=== PATIENT | female | born 1950 | race Caucasian/White ===

== ENCOUNTER → 2016-08-08 | Outpatient (CLI) | payer MEDICARE ==
--- NOTE | 2016-08-08 19:44 | BD ---
EXAMINATION TYPE: MG DEXA axial skeleton. DATE OF EXAM: 08/08/2016 4:19 PM COMPARISON: NONE CLINICAL HISTORY: post menopausal female Height: 5'2 1/2 Weight: 124 FRAX RISK QUESTIONS: Alcohol (3 or more units per day): no Family History (Parent hip fracture): no Glucocorticoids (More than 3mos): no (Ex: prednisone, prednisolone, methylprednisolone, dexamethasone, and hydrocortisone). History of Fracture in Adulthood: no Secondary Osteoporosis: 1. Type 1 Diabetes: no 2. Hyperthyroidism: no 3. Menopause before 45: no 4. Malnutrition: no 5. Chronic liver disease: no Rheumatoid Arthritis: no Current Tobacco Use: no RISK FACTORS HISTORY OF: Diet low in dairy products/other sources of calcium: Postmenopausal woman: MEDICATIONS: Additional Medications: blood pressure, cholesterol Additional History: EXAM MEASUREMENTS: Bone mineral densitometry was performed using the [employer] System. Bone mineral density as measured about the Lumbar spine is: ----- L1-L4(G/cm2): 1.113 T Score Values are as follows: ----- L2: -1.4 ----- L3: -0.3 ----- L4: 0.4 ----- L1-L4: 0.4 Bone mineral density about the R hip (g/cm2): 0.846 Bone mineral density about the L hip (g/cm2): 0.828 T Score values are as follows: -----R Neck: -1.4 -----L Neck: -1.5 -----R Total: -0.3 -----L Total: -0.3 IMPRESSION: Osteopenia (T Score between -2.5 and -1 as noted by T score values: In the low back and bilateral hip s. There is slightly increased risk of fracture and the patient may be considered for treatment. Re-S creen 2-5 years. NOTE: T-SCORE=SD OF THE YOUNG ADULT MEAN.
--- NOTE | 2016-08-09 12:50 | MM ---
Reason for exam: screening (asymptomatic). Last mammogram was performed 1 year and 2 months ago. History: Patient is postmenopausal. Reductions of both breasts, 2000. Took estrogen for 4 years beginning at age 45. Physical Findings: A clinical breast exam by your physician is recommended on an annual basis and results should be correlated with mammographic findings. MG 3D Screening Mammo W/Cad Bilateral CC and MLO view(s) were taken. Prior study comparison: June 14, 2015, bilateral MG screening mammo w CAD. January 07, 2014, bilateral MG screening mammo w CAD. December 04, 2012, CAD bilateral diagnostic mammogram. The breast tissue is heterogeneously dense. This may lower the sensitivity of mammography. Finding: There are typically benign round, difuse, grouped calcifications in both breasts. There is no discrete abnormality. ASSESSMENT: Benign, BI-RAD 2 RECOMMENDATION: Routine screening mammogram of both breasts in 1 year.
== END | disposition home or self-care (01) ==
LOC: RADMAMWWP 15:31
PROVIDERS: ATTEND Internal Medicine
DX: Z12.31 Encounter for screening mammogram for malignant neoplasm of breast (principal); M85.851 Other specified disorders of bone density and structure, right thigh; M85.852 Other specified disorders of bone density and structure, left thigh; M85.88 Other specified disorders of bone density and structure, other site; Z78.0 Asymptomatic menopausal state
CPT/HCPCS: 77080; 77063; G0202

== ENCOUNTER → 2018-01-23 | Outpatient (CLI) | payer MEDICARE ==
[2018-01-23 11:20] VITALS: BP 139/81; PULSE 64; TEMP 98.2; BMI 23.6
--- NOTE | 2018-01-23 12:59 | P.HPOB ---
History of Present Illness H&P Date: 01/23/18 Chief Complaint: The patient is here for her routine gynecologic exam and mammogram. This is a 67-year-old with an LMP of 2004. The patient is here to establish with this office. She states it is been about 2 years since her last pelvic exam. She is complaining of some vulvar pruritus on and off for months. She denies any vaginal discharge. She denies any postmenopausal bleeding. Review of Systems Weight has been stable. She denies respiratory or cardiac problems. G.I.: occasional loose stool in the morning which she wonders if it's related to her cholesterol medication. She denies maltreatment or problems with falling. : she denies any significant problems with urinary leakage. 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 She did use HRT for approximately 4 years after her menopausal change. History of Any Multi-Drug Resistant Organisms: None Reported Past Surgical History: Breast Surgery (Breast reduction), Hernia Repair ( Inguinal) Additional Past Surgical History / Comment(s): Colonoscopy 2018(4th) Past Psychological History: No Psychological Hx Reported Smoking Status: Never smoker Past Alcohol Use History: Heavy (2 per week), Occasional Past Drug Use History: None Reported Additional History: The patient has been since 1971 and is not sexually active. She is a retired schoolteacher. - Past Family History Father Family Medical History: CVA/TIA, Hyperlipidemia Mother Family Medical History: Cancer (Colon cancer) Additional Family Medical History / Comment(s): Maternal aunt had ovarian cancer. Brother(s) Family Medical History: CVA/TIA, Hyperlipidemia Medications and Allergies Home Medications Medication Instructions Recorded Confirmed Type Atorvastatin [Lipitor] 20 mg PO DAILY 01/23/18 01/23/18 History Biotin 10,000 mcg PO DAILY 01/23/18 01/23/18 History Bisoprolol-Hctz 2.5-6.25 mg [Ziac 2.5 - 625 PO DAILY 01/23/18 History 2.5-6.25 MG] Ubidecarenone [Co Q-10] 200 mg PO DAILY 01/23/18 01/23/18 History Allergies Allergy/AdvReac Type Severity Reaction Status Date / Time No Known Allergies Allergy Unverified 01/23/18 11:15 Exam Vital Signs Temp Pulse BP 01/23/18 11:15 98.2 F 64 139/81 Intake and Output 01/22/18 01/23/18 01/23/18 22:59 06:59 14:59 Other: Weight 58.513 kg Height 5'2", weight 129 pounds, BMI 23.6. This is a well-developed well-nourished white female who is alert and oriented times 3 in no acute distress. HEENT: Within normal limits. NECK: Supple without mass or thyromegaly. CHEST AND LUNGS: Clear to auscultation. HEART: Regular rate and rhythm. BREASTS: Are without mass or discharge. Breasts are consistent with previous breast reduction surgery. AXILLARY EXAM: Negative for adenopathy. BACK: Negative for CVA tenderness. ABDOMEN: Soft, nontender, without palpable masses. PELVIC EXAM: external genitalia reveals mild generalized erythema with slight perineal pallor. There is also mild to moderate generalized atrophy of the external genitalia. Cervix and vagina appear normal with mild to moderate atrophy. There is no unusual discharge. There is no evidence of prolapse. The uterus is midposition, nongravid size and nontender. There are no palpable adnexal masses or tenderness. RECTAL EXAM: rectovaginal exam is negative for mass or tenderness and is negative for occult blood. EXTREMITIES: Nontender. IMPRESSION: 1. 67-year-old menopausal female with mild to moderate genital atrophy and several month history of vulvar pruritus. 2. Nonspecific vulvitis. Possible early lichen sclerosis. 3. History of osteopenia PLAN: 1. Pap smear was performed. 2. Self breast awareness was discussed with the patient. 3. Screening mammogram will be done today. 4. Kenalog 0.1% cream BID prn. After the 1st week, she will wean off of this. She'll also use small amount of petroleum jelly to the external genitalia and perineum as a protective clear once a day. This will be applied at different times than the prescription cream. The Kenalog prescription will be sent to [facility] pharmacy in [place]. 5. If her symptoms are not improving, she will return in one month for reevaluation. 6. Osteoporosis prevention was discussed. We will plan on repeating tonicity testing in one year. 7. She'll also return in one year and PRN. 8. She did receive her flu shot this fall.
== END | disposition home or self-care (01) ==
LOC: WWCWWP 10:56
PROVIDERS: ATTEND Obstetrics & Gynecology
DX: Z53.9 Procedure and treatment not carried out, unspecified reason (principal)

== ENCOUNTER → 2018-01-23 | Outpatient (CLI) | payer MEDICARE ==
--- NOTE | 2018-01-25 09:52 | MM ---
Reason for exam: screening (asymptomatic). Last mammogram was performed 1 year and 5 months ago. History: Patient is postmenopausal. Reductions of both breasts, 2000. Took estrogen for 4 years beginning at age 45. Physical Findings: A clinical breast exam by your physician is recommended on an annual basis and results should be correlated with mammographic findings. MG 3D Screening Mammo W/Cad Bilateral CC and MLO view(s) were taken. Prior study comparison: August 08, 2016, bilateral MG 3d screening mammo w/cad. June 14, 2015, bilateral MG screening mammo w CAD. The breast tissue is heterogeneously dense. This may lower the sensitivity of mammography. No significant changes when compared with prior studies. ASSESSMENT: Benign, BI-RAD 2 RECOMMENDATION: Routine screening mammogram of both breasts in 1 year.
== END | disposition home or self-care (01) ==
LOC: RADMAMWWP 12:25
PROVIDERS: ATTEND Internal Medicine
DX: Z12.31 Encounter for screening mammogram for malignant neoplasm of breast (principal)
CPT/HCPCS: 77063; 77067

== ENCOUNTER → 2018-03-05 | Outpatient (CLI) | payer MEDICARE ==
--- NOTE | 2018-03-06 11:04 | ECHOF ---
Referral Reason:R00.2 Palpitations; I10 Hypertension MEASUREMENTS -------- HEIGHT: 157.5 cm WEIGHT: 56.7 kg BP: RVIDd: 2.4 cm (< 3.3) IVSd: 1.1 cm (0.6 - 1.1) LVIDd: 3.1 cm (3.9 - 5.3) LVPWd: 1.2 cm (0.6 - 1.1) IVSs: 1.6 cm LVIDs: 1.5 cm LVPWs: 1.7 cm LAESV Index (A-L): 22.12 ml/m Ao Diam: 2.7 cm (2.0 - 3.7) AV Cusp: 1.4 cm (1.5 - 2.6) LA Diam: 3.0 cm (2.7 - 3.8) MV EXCURSION: 11.844 mm (> 18.000) MV EF SLOPE: 49 mm/s (70 - 150) EPSS: 0.3 cm MV E Alex: 0.48 m/s MV DecT: 311 ms MV A Alex: 0.89 m/s MV E/A Ratio: 0.54 RAP: 5.00 mmHg RVSP: 22.38 mmHg FINDINGS -------- Sinus rhythm. This was a technically good study. The left ventricular size is normal. There is mild concentric left ventricular hypertrophy. Overa ll left ventricular systolic function is normal with, an EF between 55 - 60 %. The right ventricle is normal in size and function. The left atrium is normal in size. The right atrium is normal in size. The aortic valve is trileaflet, and appears structurally normal. No aortic stenosis or regurgitation. The mitral valve is normal. There is trace mitral regurgitation. Trace tricuspid regurgitation present. Right ventricular systolic pressure is normal at < 35 mmHg. The right ventricular systolic pressure, as measured by Doppler, is 22.38mmHg. There is no pulmonic regurgitation present. The aortic root size is normal. Normal inferior vena cava with normal inspiratory collapse consistent with estimated right atrial pre ssure of 5 mmHg. There is no pericardial effusion. CONCLUSIONS -------- 1. Sinus rhythm. 2. This was a technically good study. 3. The left ventricular size is normal. 4. There is mild concentric left ventricular hypertrophy. 5. Overall left ventricular systolic function is normal with, an EF between 55 - 60 %. 6. The left atrium is normal in size. 7. The aortic valve is trileaflet, and appears structurally normal. No aortic stenosis or regurgitati on. 8. There is trace mitral regurgitation. 9. Trace tricuspid regurgitation present. 10. Right ventricular systolic pressure is normal at < 35 mmHg. 11. There is no pulmonic regurgitation present. 12. The aortic root size is normal. 13. Normal inferior vena cava with normal inspiratory collapse consistent with estimated right atrial pressure of 5 mmHg. 14. There is no pericardial effusion. THERMOMETER TESTER: Jenny Bowles RDCS
== END | disposition home or self-care (01) ==
LOC: RADECHMAIN 13:54
PROVIDERS: ATTEND Internal Medicine
DX: I51.7 Cardiomegaly (principal); I10 Essential (primary) hypertension
CPT/HCPCS: 93306

== ENCOUNTER → 2019-04-15 | Outpatient (CLI) | payer MEDICARE ==
[2019-04-15 11:12] VITALS: BP 159/85; PULSE 62; RESP 18; TEMP 98.1
--- NOTE | 2019-04-15 12:01 | P.HPOB ---
History of Present Illness H&P Date: 04/15/19 Chief Complaint: The patient is here for her routine gynecologic exam and ma mmogram. This is a 68-year-old G for P3 013 with an LMP of 2004. The patient is without gynecologic complaints and denies any postmenopausal bleeding. She has used Kenalog cream to the vulva infrequently as needed and she feels this has been very helpful for occasional vulvar irritation. She did not end up needing more than one tube during the entire year. Review of Systems Weight has been stable. She denies respiratory or cardiac problems. GI: Occasional constipation and occasional soft stool. She denies maltreatment or problems with falling. : she denies any significant problems with urinary leakage. Musculoskeletal: She occasionally has a stiff neck. This is not new. Past Medical History Past Medical History: Hyperlipidemia, Hypertension Additional Past Medical History / Comment(s): Osteopenia. 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 She did use HRT for approximately 4 years after her menopausal change. History of Any Multi-Drug Resistant Organisms: None Reported Past Surgical History: Breast Surgery, Hernia Repair Additional Past Surgical History / Comment(s): Breast reduction surgery. Inguinal hernia repair. Colonoscopy 2018(4th,next after 5yr) Past Psychological History: No Psychological Hx Reported Smoking Status: Never smoker Past Alcohol Use History: Occasional (2 per week) Past Drug Use History: None Reported Additional History: She has been since 1971 and is not sexually active. She is a retired schoolteacher. - Past Family History Father Family Medical History: CVA/TIA, Hyperlipidemia Mother Family Medical History: Cancer Additional Family Medical History / Comment(s): Colon cancer. A maternal aunt had ovarian cancer. Brother(s) Family Medical History: CVA/TIA, Hyperlipidemia Medications and Allergies Home Medications Medication Instructions Recorded Confirmed Type Atorvastatin [Lipitor] 20 mg PO DAILY 01/23/18 04/15/19 History Biotin 10,000 mcg PO DAILY 01/23/18 04/15/19 History Bisoprolol-Hctz 2.5-6.25 mg [Ziac 2.5 - 625 mg PO DAILY 01/23/18 04/15/19 History 2.5-6.25 MG] Triamcinolone 0.1% Cream [Kenalog 1 applicatio TOPICAL BID PRN #30 gm 01/23/18 04/15/19 Rx 0.1% Cream] Ubidecarenone [Co Q-10] 200 mg PO DAILY 01/23/18 04/15/19 History Calcium Carbonate/Vitamin D3 1 each PO DAILY 04/15/19 04/15/19 History [Calcium 500-Vit D3 600 Tablet] Drenatrophin 3 tab PO DAILY 04/15/19 History Magnesium 200 mg PO DAILY 04/15/19 04/15/19 History Taurine 3 tab PO DAILY 04/15/19 04/15/19 History Allergies Allergy/AdvReac Type Severity Reaction Status Date / Time No Known Allergies Allergy Unverified 04/15/19 11:12 Exam Vital Signs Temp Pulse Resp BP Pulse Ox 04/15/19 11:07 98.1 F 62 18 159/85 97 Intake and Output 04/14/19 04/15/19 04/15/19 22:59 06:59 14:59 Other: Weight 57.153 kg Height 5 feet 1 inch, weight 126 pounds, BMI 23.8. This is a well-developed well-nourished white female who is alert and oriented times 3 in no acute distress. HEENT: Within normal limits. NECK: Supple without mass or thyromegaly. CHEST AND LUNGS: Clear to auscultation. HEART: Regular rate and rhythm. BREASTS: Are without mass or discharge. Scars consistent with breast reduction surgery. AXILLARY EXAM: Negative for adenopathy. BACK: Negative for CVA tenderness. ABDOMEN: Soft, nontender, without palpable masses. PELVIC EXAM: External genitalia reveals mild generalized erythema with no leukoplakia and no focal lesions. There is mild atrophy of the vulva. Cervix and vagina appear normal with mild atrophy. There is no unusual discharge. There is no evidence of prolapse. The uterus is midposition, nongravid size and nontender. There are no palpable adnexal masses or tenderness. RECTAL EXAM: Rectovaginal exam is negative for mass or tenderness and is negative for occult blood. EXTREMITIES: Nontender. IMPRESSION: 1. 68-year-old menopausal female with mild vulvar irritation improved with Kenalog cream infrequently when necessary. Otherwise unremarkable gynecologic exam. 2. History of osteopenia. 3. Mildly elevated blood pressure with history of chronic hypertension. PLAN: 1. Pap smear was deferred since she had a normal one on 01/23/2018. We will consider discontinuing them when we have gotten 3 negative ones in a row. 2. Self breast awareness was discussed with the patient. 3. Screening mammogram will be done today. 4. Osteoporosis prevention was discussed. I have stressed the importance of adequate calcium, vitamin D and regular exercise. Recommended amounts of calcium and vitamin D were also discussed. Bone density testing was recommended and the order slip was given to the patient for this. 5. She did receive her flu shot this past fall. 6. She will continue to use Kenalog cream twice a day when necessary. The electronic prescription will be sent to [facility] pharmacy on [facility]. 7. I have recommended that she check her blood pressures at home on a daily basis. She was instructed to follow-up with Dr. Mendiola for blood pressure elevations. 8. The patient was advised to return in 1-2 years for her well woman examination.
--- NOTE | 2019-04-17 13:29 | MM ---
Reason for exam: screening (asymptomatic). Last mammogram was performed 1 year and 3 months ago. History: Patient is postmenopausal. Reductions of both breasts, 2000. Took estrogen for 4 years beginning at age 45. Physical Findings: A clinical breast exam by your physician is recommended on an annual basis and results should be correlated with mammographic findings. MG 3D Screening Mammo W/Cad Bilateral CC and MLO view(s) were taken. Prior study comparison: January 23, 2018, bilateral MG 3d screening mammo w/cad. August 08, 2016, bilateral MG 3d screening mammo w/cad. The breast tissue is heterogeneously dense. This may lower the sensitivity of mammography. No significant changes when compared with prior studies. ASSESSMENT: Benign, BI-RAD 2 RECOMMENDATION: Routine screening mammogram of both breasts in 1 year.
== END | disposition home or self-care (01) ==
LOC: WWCWWP 10:31
PROVIDERS: ATTEND Obstetrics & Gynecology
DX: Z12.31 Encounter for screening mammogram for malignant neoplasm of breast (principal)
CPT/HCPCS: 77063; 77067

== ENCOUNTER → 2022-01-31 | Outpatient (CLI) | payer MEDICARE ==
[2022-01-31 07:57] VITALS: BP 162/79; PULSE 55; RESP 17; TEMP 97.8
--- NOTE | 2022-01-31 08:47 | P.HPOB ---
History of Present Illness H&P Date: 01/31/22 Chief Complaint: The patient is here for her routine gynecologic exam and ma mmogram. This is a 71-year-old with an LMP of 2004. The patient has used Kenalog cream infrequently for intermittent vulvar pruritus and this has been helpful for her. She is otherwise without gynecologic complaints and denies any postmenopausal bleeding. Review of Systems The patient's weight has been stable over the last year. She denies respiratory, cardiac, or G.I. problems. Past Medical History Past Medical History: Cancer, Hyperlipidemia, Hypertension Additional Past Medical History / Comment(s): Skin cancer on the nose. Osteopenia. 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 She did use HRT for approximately 4 years after her menopausal change. History of Any Multi-Drug Resistant Organisms: None Reported Past Surgical History: Breast Surgery, Hernia Repair Additional Past Surgical History / Comment(s): Breast reduction surgery. Inguinal hernia repair. Colonoscopy 2018(4th,next after 5yr) Past Psychological History: No Psychological Hx Reported Smoking Status: Never smoker Past Alcohol Use History: Occasional (2 per week) Past Drug Use History: None Reported Additional History: She has been since 1971 and is not sexually active. She is a retired schoolteacher. - Past Family History Father Family Medical History: CVA/TIA, Hyperlipidemia Mother Family Medical History: Cancer Brother(s) Family Medical History: CVA/TIA, Hyperlipidemia Medications and Allergies Home Medications Medication Instructions Recorded Confirmed Type Atorvastatin [Lipitor] 20 mg PO DAILY 01/23/18 01/31/22 History Bisoprolol-Hctz 2.5-6.25 mg [Ziac 2.5 - 625 mg PO DAILY 01/23/18 01/31/22 History 2.5-6.25 MG] Ubidecarenone [Co Q-10] 200 mg PO DAILY 01/23/18 01/31/22 History Magnesium 200 mg PO DAILY 04/15/19 01/31/22 History Triamcinolone 0.1% Cream [Kenalog 1 applicatio TOPICAL BID PRN #30 gm 04/15/19 01/31/22 Rx 0.1% Cream] Cholecalciferol (Vitamin D3) 125 mcg PO DAILY 01/31/22 01/31/22 History [Vitamin D3 (125 MCG = 5,000 IU)] L.acidoph,Paracasei, B.lactis 1 cap PO DAILY 01/31/22 01/31/22 History [Probiotic] LORazepam [Ativan] 1 mg PO DAILY PRN 01/31/22 01/31/22 History Losartan Potassium 100 mg PO DAILY 01/31/22 01/31/22 History Allergies Allergy/AdvReac Type Severity Reaction Status Date / Time No Known Allergies Allergy Unverified 01/31/22 07:48 Exam Vital Signs Temp Pulse Resp BP Pulse Ox 01/31/22 07:54 97.8 F 55 L 17 162/79 98 Intake and Output 01/30/22 01/31/22 01/31/22 22:59 06:59 14:59 Other: Weight 58.06 kg Height 5 feet 2 inches, weight 128 pounds, BMI 23.4. This is a well-developed well-nourished white female who is alert and oriented times 3 in no acute distress. HEENT: Within normal limits. NECK: Supple without mass or thyromegaly. CHEST AND LUNGS: Clear to auscultation. HEART: Regular rate and rhythm. BREASTS: Are without mass or discharge. Breasts are consistent with her previous breast reduction surgery. AXILLARY EXAM: Negative for adenopathy. BACK: Negative for CVA tenderness. ABDOMEN: Soft, nontender, without palpable masses. PELVIC EXAM: External genitalia reveals minimal generalized erythema with mild to moderate atrophy. There are no focal vulvar lesions, no evidence of excoria tion, and no signs of unusual pallor. Cervix and vagina appear normal with mild to moderate atrophy. There is no unusual discharge. There is no evidence of prolapse. The uterus is midposition, nongravid size and nontender. There are no palpable adnexal masses or tenderness. RECTAL EXAM: Rectovaginal exam is negative for mass or tenderness and is negative for occult blood. EXTREMITIES: Nontender. IMPRESSION: 1. 71-year-old menopausal female with mild vulvar irritation improved with Kenalog cream used infrequently. 2. Elevated blood pressure with history of chronic hypertension. 3. History of osteopenia. PLAN: 1. Pap smear was performed. If this is negative, we will repeat this in approximately 3 years and if that one is negative, we will plan on discontinuing Pap smears. 2. Self breast awareness was discussed with the patient. We have also discussed symptoms associated with inflammatory breast cancer. 3. Screening mammogram will be done today. 4. Osteoporosis prevention was discussed. I have stressed the importance of adequate calcium, vitamin D and regular exercise. Recommended amounts of calcium and vitamin D were also discussed. I have recommended bone density testing since her last one was in 2017. The order slip was given to the patient for this. 5. I recommended that she check her own blood pressures at home on a regular basis and follow-up with Dr. Mackay for blood pressure elevations. 6. She has completed her Covid vaccination series and has received 2 boosters. 7. Kenalog 0.1% cream twice a day as needed for vulvar pruritus. The electronic prescription will be sent to [facility] pharmacy on [facility]. 8. The patient was advised to return in 1-2 years for her well woman examination.
--- NOTE | 2022-02-01 08:54 | MM ---
Reason for Exam: Screening (asymptomatic). Last mammogram was performed 2 year(s) and 10 month(s) ago. Patient History: Menarche at age 11. First Full-Term at age 24. Postmenopausal. Estrogen for 4 years from age 45 until age 49. 2000, Bilateral Reduction. Risk Values: Tamanna 5 year model risk: 2.0%. NCI Lifetime model risk: 5.1%. Prior Study Comparison: 08/08/2016 Bilateral Screening Mammogram, [facility]. 01/23/2018 Bilateral Screening Mammogram, [facility]. 04/15/2019 Bilateral Screening Mammogram, [facility]. Tissue Density: The breast tissue is heterogeneously dense. This may lower the sensitivity of mammography. Findings: Analyzed By CAD. A few scattered benign-appearing tiny round calcifications throughout the bilateral breasts are redemonstrated. There is no suspicious new group of microcalcifications or new suspicious mass in either breast. Overall Assessment: Benign, BI-RAD 2 Management: Screening Mammogram of both breasts in 1 year. A clinical breast exam by your physician is recommended on an annual basis and results should be correlated with mammographic findings. Electronically signed and approved by: Les Otero M.D.
== END ==
LOC: WWCWWP 07:41
PROVIDERS: ATTEND Obstetrics & Gynecology
DX: Z01.419 Encounter for gynecological examination (general) (routine) without abnormal findings (principal); Z12.31 Encounter for screening mammogram for malignant neoplasm of breast; Z78.0 Asymptomatic menopausal state; I10 Essential (primary) hypertension; Z87.39 Personal history of other diseases of the musculoskeletal system and connective tissue; Z79.899 Other long term (current) drug therapy
CPT/HCPCS: 77063; 77067

== ENCOUNTER → 2022-02-27 | Outpatient (CLI) | payer MEDICARE ==
[2022-02-27 15:19] LABS: African American GFR (CKD) 111.9 (60.0-200.0); Anion Gap 9.6 mmol/L (10.00-18.00); BUN/Creat Ratio 19.5 Ratio (12.00-20.00); Blood Urea Nitrogen 9.8 mg/dL (9.0-27.0); Calcium 9.4 mg/dL (8.7-10.3); Carbon Dioxide 26.5 mmol/L (20.0-27.5); Magnesium 2.2 mg/dL (1.5-2.4); Non-African American GFR(CKD) 96.5 (60.0-200.0); Potassium 4.2 mmol/L (3.5-5.5)
== END | disposition home or self-care (01) ==
LOC: LABWHC1 09:24
PROVIDERS: ATTEND Internal Medicine Interventional Cardiology
DX: I10 Essential (primary) hypertension (principal)
CPT/HCPCS: 36415; 80048; 83735

== ENCOUNTER → 2022-03-06 | Outpatient (CLI) | payer MEDICARE ==
--- NOTE | 2022-03-06 14:06 | BD ---
EXAMINATION TYPE: Axial Bone Density DATE OF EXAM: 03/06/2022 COMPARISON: 08.08.2016 CLINICAL HISTORY: 71 years year old Female. ICD-10 CODE: Z78.0 ASYMPTOMATIC MENOPAUSAL STATE Height: 62 Weight: 126 FRAX RISK QUESTIONS: NOTHING TO NOTE HERE RISK FACTORS HISTORY OF: Postmenopausal woman: YES, AT 49 YRS OLD Take estrogen and/or progesterone medications: YES, FOR SHORT WHILE, NONE NOW Hyperparathyroidism: NO Adrenal Insufficiency: NO MEDICATIONS: Additional Medications: BP MED, XANAX PRN, CHOLESTEROL MEDS, VIT D, TUMS Additional History: HYPERTENSION, ANXIETY, CHOLESTEROL, SLIGHT IN SIZE EXAM MEASUREMENTS: Bone mineral densitometry was performed using the [employer] System. Bone mineral density as measured about the Lumbar spine is: ----- L1-L4(G/cm2): 0.950 T Score Values are as follows: ----- L1: -2.4 ----- L2: -2.5 ----- L3: -2.2 ----- L4: -0.9 ----- L1-L4: -1.9 Bone mineral density has: Decreased -14.6% since study of: 08.08.2016 Bone mineral density about the R hip (g/cm2): 0.945 Bone mineral density about the L hip (g/cm2): 0.921 T Score values are as follows: -----R Neck: -1.3 -----L Neck: -1.5 -----R Total: -0.5 -----L Total: -0.7 Bone mineral density has: Decreased -3.2% since study of: 08.08.2016 FRAX%s: The graph provided illustrates a 10.4% chance for a major osteoporotic fx and a 1.9% chance f or the hips probability for fx in 10 years time. IMPRESSION: Osteopenia (T Score between -2.5 and -1). There is slightly increased risk of fracture and the patient may be considered for treatment. Re-Screen 2-5 years. NOTE: T-SCORE=SD OF THE YOUNG ADULT MEAN.
--- NOTE | 2022-03-07 15:19 | P.PN ---
Progress Note - Text Progress Note Date: 03/07/22 OUTPATIENT FOLLOW-UP NOTE TEST(S)/RESULTS: Bone density test on 03/06/2022 showed osteopenia. METHOD OF NOTIFICATION: The patient was notified by phone. PATIENT COMMENTS: DIAGNOSIS: Osteopenia DISCUSSION: There is a decrease in the lumbar spine measurements of about 14.6% since 2017. I have stressed the importance of adequate calcium, vitamin D, and regular exercise. We will plan on repeating this in approximately 2-3 years. PLAN: The patient was advised to return in 1-2 years for her well woman examination.
== END | disposition home or self-care (01) ==
LOC: RADBDWWP 10:28
PROVIDERS: ATTEND Obstetrics & Gynecology
DX: M81.0 Age-related osteoporosis without current pathological fracture (principal); M85.89 Other specified disorders of bone density and structure, multiple sites; Z78.0 Asymptomatic menopausal state
CPT/HCPCS: 77080

== ENCOUNTER → 2023-06-05 | Outpatient (CLI) | payer MEDICARE ==
--- NOTE | 2023-06-05 14:50 | MM ---
Reason for Exam: Screening (asymptomatic). Last mammogram was performed 1 year(s) and 4 month(s) ago. Patient History: Menarche at age 11. First Full-Term at age 24. Postmenopausal. Estrogen for 4 years from age 45 until age 49. 2000, Bilateral Reduction. Risk Values: Tamanna 5 year model risk: 2.0%. NCI Lifetime model risk: 4.8%. Prior Study Comparison: 01/23/2018 Bilateral Screening Mammogram, [facility]. 04/15/2019 Bilateral Screening Mammogram, [facility]. 01/31/2022 Bilateral MG 3D screening mammo w/cad, [facility]. Tissue Density: The breasts are heterogeneously dense, which may obscure small masses. Findings: Analyzed By CAD. There is no suspicious group of microcalcifications or new suspicious mass. Overall Assessment: Negative, BI-RAD 1 Management: Screening Mammogram of both breasts in [address] [facility] will attempt to contact patient to return for supplemental views and ultrasound if indicated. Patient should continue monthly self-breast exams. A clinical breast exam by your physician is recommended on an annual basis. This exam should not preclude additional follow-up of suspicious palpable abnormalities. Note on Tamanna scores and lifetime risk: 1. A Tamanna score greater than 3% is considered moderate risk. If this is the case, consider specialist referral to assess eligibility for a risk reducing agent. 2. If overall lifetime risk for the development of breast cancer is 20% or higher, the patient may qualify for future screening with alternating mammogram and breast MRI. Electronically signed and approved by: Julio Hernandez DO
== END | disposition home or self-care (01) ==
LOC: RADMAMWWP 07:40
PROVIDERS: ATTEND Internal Medicine Geriatric Medicine
DX: Z12.31 Encounter for screening mammogram for malignant neoplasm of breast (principal); Z78.0 Asymptomatic menopausal state
CPT/HCPCS: 77063; 77067